=== PATIENT | male | born 1995 | race Caucasian/White ===

== ENCOUNTER 2021-03-26 15:05 | Emergency (ER) | payer MEDICAID, OTHER ==
[~2021-03-26] VITALS: Ht 170.2 cm; Wt 79.4 kg
[2021-03-26] MEDS ORDERED: LORAZEPAM 2 MG/1 ML VIAL IV ONE (15:15)
[2021-03-26] MEDS ORDERED: IV NORMAL SALINE 1000 ML BAG IV ONE (15:15)
[2021-03-26] MEDS ORDERED: ATENOLOL (15:16)
[2021-03-26] MEDS ORDERED: QUET25TA3 (15:16)
--- NOTE | 2021-03-26 15:26 | NUR ---
PT IS IN ROOM #1B. DR BECERRA EVALUATED THE PT.
[2021-03-26] MEDS ORDERED: LORAZEPAM 2 MG/1 ML VIAL ONE (15:27)
[2021-03-26] MEDS ORDERED: ATENOLOL 25 MG TABLET PO ONE (15:30)
[2021-03-26 15:41] LABS: MEAN CORPUSCULAR HEMOGLOBIN 29.4 uug (23.8-33.4); PLATELET COUNT (AUTO) 291 K/uL (152-348)
[2021-03-26 15:43] LABS: CREATININE 1.3 mg/dL (0.6-1.3); POTASSIUM 3.4 mmol/L (3.5-5.1)
[2021-03-26] MEDS ORDERED: ATENOLOL 25 MG TABLET ONE (15:44)
[2021-03-26 15:49] LABS: ETHANOL < 3 MG/DL (0-0)
[2021-03-26] MEDS ORDERED: HYDR-500 GT (18:17)
--- NOTE | 2021-03-26 18:49 | NUR ---
PT WAS D/C'd TO HOME AFTER ER MD RE-EVALUATION. D/C INSTRUCTIONS GIVEN TO THE PT BY DR BECERRA. NO S/S OF DISTRESS AT THE TIME OF DISCHARGE.
[2021-03-26 18:50] VITALS: BP 123/72
== END 2021-03-26 18:52 | disposition home or self-care (01) ==
LOC: ER 15:05
DX: F41.0 Panic disorder [episodic paroxysmal anxiety] (principal); R00.0 Tachycardia, unspecified; R00.2 Palpitations; I10 Essential (primary) hypertension
CPT/HCPCS: 36415; 71045; 80048; 80307; 80320; 84484 ×2; 85025; 85379; 93005 ×2; 96361; 96374; 99285; J2060; 70030-TC; G0480